=== PATIENT | female | born 1990 | race Two or more races ===

== ENCOUNTER 2025-01-17 21:38 | Emergency (ER) | payer MEDICAID, OTHER ==
[~2025-01-17] VITALS: Ht 172.7 cm; Wt 92.3 kg
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
[2025-01-18 00:34] VITALS: BP 116/80; TEMP 98.2
[2025-01-18 00:44] VITALS: PULSE 92; RESP 18; O2SAT 97
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
== END 2025-01-18 01:05 | disposition home or self-care (01) ==
LOC: ER 21:38 → EDBD 21:38 → ER 01-18 01:05
DX: S30.11XA Contusion of abdominal wall, initial encounter (principal); S20.212A Contusion of left front wall of thorax, initial encounter; S09.90XA Unspecified injury of head, initial encounter; V43.52XA Car driver injured in collision with other type car in traffic accident, initial encounter; Y93.89 Activity, other specified; Y92.410 Unspecified street and highway as the place of occurrence of the external cause; Y99.8 Other external cause status
CPT/HCPCS: 71101